=== PATIENT | female | born 1985 ===

== ENCOUNTER 2022-08-15 18:08 | Emergency (ER) | payer BC ==
[2022-08-15 19:25] LABS: APPEARANCE,URINE CLEAR; BILIRUBIN,URINE NEGATIVE (NEGATIVE); COLOR,URINE YELLOW; GLUCOSE,URINE NEGATIVE (NEGATIVE); KETONES,URINE NEGATIVE (NEGATIVE); LEUKOCYTE ESTERASE,URINE NEGATIVE (NEGATIVE); NITRITE,URINE NEGATIVE (NEGATIVE); OCCULT BLOOD,URINE NEGATIVE (NEGATIVE); PH,URINE 6.5 (5.0-8.0); PROTEIN,URINE NEGATIVE (NEGATIVE); UROBILINOGEN,URINE 0.2 EU/dL (<2.0)
== END 2022-08-15 21:10 | disposition home or self-care (01) ==
LOC: MW.ED 18:08
DX: N83.202 Unspecified ovarian cyst, left side (principal); Z88.1 Allergy status to other antibiotic agents; Z91.040 Latex allergy status
CPT/HCPCS: 76775; 76775-26; 81003; 81025; 99283; 99284

== ENCOUNTER 2023-03-31 15:51 | Emergency (ER) | payer BC ==
[2023-03-31 16:47] LABS: BASOPHILS ABSOLUTE AUTO 0.03 K/uL (0.00-0.20); BASOPHILS PERCENT AUTO 0.2 % (0.0-1.0); EOSINOPHILS ABSOLUTE AUTO 0.09 K/uL (0.00-0.45); EOSINOPHILS PERCENT AUTO 0.7 % (0.0-6.0); HEMATOCRIT 34.4 % (37.0-47.0); HEMOGLOBIN 11.4 g/dL (12.0-16.0); IMMATURE GRAN ABSOLUTE AUTO 0.06 K/uL (0.00-0.05); IMMATURE GRAN PERCENT AUTO 0.5 % (0.0-0.4); LYMPHOCYTES ABSOLUTE AUTO 2.14 K/uL (1.00-4.80); LYMPHOCYTES PERCENT AUTO 17.2 % (24.0-44.0); MEAN CORPUSCULAR HEMOGLOBIN 31.2 pg (28.0-32.0); MEAN CORPUSCULAR HGB CONC 33.1 g/dL (32.0-36.0); MEAN CORPUSCULAR VOLUME 94.2 fL (83.0-99.0); MEAN PLATELET VOLUME 8.8 fL (9.4-12.3); MONOCYTES ABSOLUTE AUTO 0.69 K/uL (0.00-0.80); MONOCYTES PERCENT AUTO 5.6 % (0.0-8.0); NEUTROPHILS ABSOLUTE AUTO 9.42 K/uL (1.80-7.70); NEUTROPHILS PERCENT AUTO 75.8 % (41.0-71.0); PLATELET COUNT,PLT 305 K/uL (150-400); RED BLOOD CELL COUNT 3.65 M/uL (4.10-5.30); WHITE BLOOD CELL COUNT,WBC 12.43 K/uL (3.9-11.3)
[2023-03-31 16:51] LABS: INR < 0.93 (0.86-1.11)
[2023-03-31] MEDS ORDERED: Sodium Chloride 0.9% 2.5 ML Syringe FLUSH PRN (16:58)
[2023-03-31] MEDS ORDERED: Sodium Chloride 0.9% 10 ML Syringe FLUSH PRN (16:58)
[2023-03-31 17:11] LABS: A/G RATIO 0.6 (0.9-1.6); ALBUMIN 2.7 g/dL (3.4-5.0); BILIRUBIN TOTAL 0.3 mg/dL (0.2-1.0); CALCIUM 8.9 mg/dL (8.5-10.1); CARBON DIOXIDE,CO2 25.8 mmol/L (21.0-32.0); CREATININE 0.7 mg/dL (0.6-1.0); EST CRCL DRUG DOSING (CG) 98.05 mL/min; MAGNESIUM 1.8 mg/dL (1.8-2.4); POTASSIUM,K 3.8 mmol/L (3.5-5.1); PROTEIN TOTAL,TP 7.1 g/dL (6.4-8.2)
[2023-03-31] MEDS ORDERED: Sodium Chloride 0.9% 1,000 ML IV ONE (17:12)
== END 2023-03-31 18:30 | disposition home or self-care (01) ==
LOC: MW.ED 15:51
DX: O99.413 Diseases of the circulatory system complicating pregnancy, third trimester (principal); R00.2 Palpitations; Z91.040 Latex allergy status; Z88.1 Allergy status to other antibiotic agents; Z3A.39 39 weeks gestation of pregnancy
CPT/HCPCS: 36415; 80053; 83735; 84484; 85025; 85610; 93005; 99284; J3490; J7030; 93010; 99283

== ENCOUNTER 2023-04-09 07:35 | Inpatient (IN) | payer BC ==
[2023-04-09] MEDS ORDERED: Sodium Chloride 0.9% 20 ML SDV IV PRN (09:52)
[2023-04-09] MEDS ORDERED: Water For Irrigation,Sterile 1,000 ML Container IRR PRN (09:52)
[2023-04-09] MEDS ORDERED: Butorphanol 1 MG/ML SDV IVPUSH PRN (09:52)
[2023-04-09] MEDS ORDERED: Tranexamic Acid IN NACL,ISO-OS 1,000 MG in Premix Bag 1 BAG IV PRN ×2 (09:52)
[2023-04-09] MEDS ORDERED: Sodium Chloride 0.9% 2.5 ML Syringe FLUSH PRN (09:52)
[2023-04-09] MEDS ORDERED: Carboprost Tromethamine 250 MCG/1 mL Vial IM PRN (09:52)
[2023-04-09] MEDS ORDERED: Methylergonovine 0.2 MG/1 ML Amp IM PRN (09:52)
[2023-04-09] MEDS ORDERED: Lidocaine 1% 50 ML MDV INJECT PRN (09:52)
[2023-04-09] MEDS ORDERED: Misoprostol 200 MCG Tab PO PRN (09:52)
[2023-04-09] MEDS ORDERED: Sodium Chloride 0.9% 10 ML Syringe FLUSH PRN (09:52)
[2023-04-09] MEDS ORDERED: Nalbuphine 10 MG/0.5 ML Syringe IVPUSH PRN (09:59)
[2023-04-09] MEDS ORDERED: Oxytocin/0.9 % Sodium Chloride 30 UNIT/500 ML BAG IV SCH (10:00)
[2023-04-09] MEDS ORDERED: Lactated Ringers 1,000 ML IV SCH (10:00)
[2023-04-09] MEDS ORDERED: Promethazine 25 MG/ML SDV IM PRN (10:01)
[2023-04-09 10:23] LABS: HEMATOCRIT 36.4 % (37.0-47.0); HEMOGLOBIN 12.1 g/dL (12.0-16.0); MEAN CORPUSCULAR HEMOGLOBIN 30.9 pg (28.0-32.0); MEAN CORPUSCULAR HGB CONC 33.2 g/dL (32.0-36.0); MEAN CORPUSCULAR VOLUME 92.9 fL (83.0-99.0); MEAN PLATELET VOLUME 8.8 fL (9.4-12.3); PLATELET COUNT,PLT 305 K/uL (150-400); RED BLOOD CELL COUNT 3.92 M/uL (4.10-5.30); WHITE BLOOD CELL COUNT,WBC 17.44 K/uL (3.9-11.3)
[2023-04-09] MEDS ORDERED: HYDROmorphone 2 MG/ML Syringe ONE (11:05)
[2023-04-09] MEDS ORDERED: HYDROmorphone 2 MG/ML Syringe IVPUSH ONE (11:11)
[2023-04-09] MEDS ORDERED: Phenylephrine HCl 0.5 MG/5 ML AMP IVPUSH PRN (11:50)
[2023-04-09] MEDS ORDERED: ePHEDrine 50 MG/ML SDV IVPUSH PRN ×2 (11:50)
[2023-04-09] MEDS ORDERED: Ropivacaine HCl/PF 400 MG in Premix Bag 1 BAG EPIDUR SCH (12:00)
[2023-04-09] MEDS ORDERED: Docusate Sodium 100 MG Cap PO PRN (13:25)
[2023-04-09] MEDS ORDERED: Lanolin 100% Cream 7 GM Tube TOP PRN (13:25)
[2023-04-09] MEDS ORDERED: oxyCODONE 5 MG Tab PO PRN (13:25)
[2023-04-09] MEDS: Ibuprofen 800 MG Tab PO PRN ×2 (13:59→23:31)
[2023-04-09] MEDS: Benzocaine/Menthol 20%-0.5% Spray 78 GM Cannister TOP PRN (14:07)
[2023-04-09] MEDS: Witch Hazel Medicated Pads 40/Jar TOP PRN (14:09)
[2023-04-10] MEDS: Ibuprofen 800 MG Tab PO PRN ×2 (06:38→13:41)
[2023-04-10 06:41] LABS: HEMOGLOBIN 9.4 g/dL (12.0-16.0)
[2023-04-11] MEDS: Ibuprofen 800 MG Tab PO PRN ×2 (04:47→11:23)
[2023-04-11] MEDS: Acetaminophen 500 MG Tab PO PRN ×2 (04:47→08:53)
[2023-04-11] MEDS: Benzocaine/Menthol 20%-0.5% Spray 78 GM Cannister TOP PRN (04:48)
[2023-04-11] MEDS: Witch Hazel Medicated Pads 40/Jar TOP PRN (04:48)
== END 2023-04-11 15:05 | disposition home or self-care (01) | DRG 560 ==
LOC: MW.OBCHECK 07:35 → MW.OB 07:36 → MW.OBCHECK 09:52 → MW.OB 10:31 → OBSVTOIN 13:25 → MW.OB 16:31
PROVIDERS: ADMIT Obstetrics & Gynecology; ATTEND Obstetrics & Gynecology
PROC: 10E0XZZ Delivery of Products of Conception, External Approach (ICD-10-PCS; principal; 2023-04-09)
PROC: 0KQM0ZZ Repair Perineum Muscle, Open Approach (ICD-10-PCS; 2023-04-09)
DX: O48.0 Post-term pregnancy (principal); Z3A.40 40 weeks gestation of pregnancy; Z88.1 Allergy status to other antibiotic agents; Z91.040 Latex allergy status; O70.1 Second degree perineal laceration during delivery; Z37.0 Single live birth
CPT/HCPCS: 36415; 59409; 85014; 85018; 85027; 86592; 86850; 86900; 86901; A9270-GY; J1170; J2001; J2590

== ENCOUNTER 2023-07-25 12:31 | Emergency (ER) | payer BC | END 2023-07-25 16:05 | disposition home or self-care (01) | LOC: MW.ED 12:31 | DX: M25.551 Pain in right hip (principal); Z75.8 Other problems related to medical facilities and other health care; Z88.1 Allergy status to other antibiotic agents; Z91.040 Latex allergy status; X50.1XXA Overexertion from prolonged static or awkward postures, initial encounter | CPT/HCPCS: 73502-26-RT; 73502-RT; 73552-26-LT; 73552-RT; 99282; 99283 ==

== ENCOUNTER 2023-10-12 21:20 | Emergency (ER) | payer BC | END 2023-10-12 23:57 | disposition home or self-care (01) | LOC: MW.ED 21:20 | DX: S86.112A Strain of other muscle(s) and tendon(s) of posterior muscle group at lower leg level, left leg, initial encounter (principal); Z75.8 Other problems related to medical facilities and other health care; Z91.040 Latex allergy status; Z88.1 Allergy status to other antibiotic agents; Z79.899 Other long term (current) drug therapy; X50.0XXA Overexertion from strenuous movement or load, initial encounter | CPT/HCPCS: 73562-26-LT; 73562-LT; 99283 ==

== ENCOUNTER 2024-06-28 11:39 | Emergency (ER) | payer BC ==
[2024-06-28 13:04] LABS: BASOPHILS ABSOLUTE AUTO 0.05 K/uL (0.00-0.20); BASOPHILS PERCENT AUTO 0.6 % (0.0-1.0); EOSINOPHILS ABSOLUTE AUTO 0.09 K/uL (0.00-0.45); HEMATOCRIT 39.8 % (37.0-47.0); HEMOGLOBIN 12.6 g/dL (12.0-16.0); IMMATURE GRAN ABSOLUTE AUTO 0.02 K/uL (0.00-0.05); IMMATURE GRAN PERCENT AUTO 0.2 % (0.0-0.4); LYMPHOCYTES ABSOLUTE AUTO 2.87 K/uL (1.00-4.80); MEAN CORPUSCULAR HEMOGLOBIN 28.1 pg (28.0-32.0); MEAN CORPUSCULAR HGB CONC 31.7 g/dL (32.0-36.0); MEAN CORPUSCULAR VOLUME 88.8 fL (83.0-99.0); MEAN PLATELET VOLUME 8.3 fL (9.4-12.3); MONOCYTES ABSOLUTE AUTO 0.57 K/uL (0.00-0.80); MONOCYTES PERCENT AUTO 6.5 % (0.0-8.0); NEUTROPHILS ABSOLUTE AUTO 5.11 K/uL (1.80-7.70); NEUTROPHILS PERCENT AUTO 58.7 % (41.0-71.0); PLATELET COUNT,PLT 370 K/uL (150-400); RED BLOOD CELL COUNT 4.48 M/uL (4.10-5.30); WHITE BLOOD CELL COUNT,WBC 8.71 K/uL (3.9-11.3)
[2024-06-28 13:34] LABS: A/G RATIO 0.9 (0.9-1.6); ALBUMIN 3.5 g/dL (3.4-5.0); BILIRUBIN TOTAL 0.4 mg/dL (0.2-1.0); CALCIUM 8.5 mg/dL (8.5-10.1); CARBON DIOXIDE,CO2 27.7 mmol/L (21.0-32.0); CREATININE 0.8 mg/dL (0.6-1.0); EST CRCL DRUG DOSING (CG) 84.95 mL/min; PROTEIN TOTAL,TP 7.6 g/dL (6.4-8.2)
[2024-06-28 14:45] LABS: APPEARANCE,URINE CLEAR; BILIRUBIN,URINE NEGATIVE (NEGATIVE); COLOR,URINE YELLOW; GLUCOSE,URINE NEGATIVE (NEGATIVE); KETONES,URINE NEGATIVE (NEGATIVE); LEUKOCYTE ESTERASE,URINE NEGATIVE (NEGATIVE); NITRITE,URINE NEGATIVE (NEGATIVE); OCCULT BLOOD,URINE NEGATIVE (NEGATIVE); PROTEIN,URINE NEGATIVE (NEGATIVE); UROBILINOGEN,URINE 0.2 EU/dL (<2.0)
== END 2024-06-28 15:33 | disposition home or self-care (01) ==
LOC: MW.ED 11:39
DX: O03.9 Complete or unspecified spontaneous abortion without complication (principal); Z88.1 Allergy status to other antibiotic agents; Z91.040 Latex allergy status; Z79.899 Other long term (current) drug therapy; Z75.8 Other problems related to medical facilities and other health care
CPT/HCPCS: 36415; 76801; 76801-26; 80053; 81003; 84702; 85025; 86900; 86901; 99283; 99284